=== PATIENT | male | born 1995 | race Caucasian/White ===

== ENCOUNTER → 2017-01-27 | Outpatient (CLI) | payer BC ==
[~2017-01-27] MED LIST: FEXO1TAB49 PO; MISCCAP80 PO; PRLSR20 PO; RANI150T3 PO
--- NOTE | 2017-01-27 07:52 | DIAGNOSTIC IMAGING REPORT ---
ABDOMEN COMPLETE (US) CLINICAL HISTORY: Abdominal pain. COMPARISON STUDY: No previous studies for comparison. FINDINGS: The liver is sonographically normal. There is no biliary ductal dilatation. The common bile duct measures 2 mm in caliber. The gallbladder is normal. No gallstones are identified. The pancreas is within normal limits by sonography although the head and tail are slightly obscured by overlying bowel gas. The size of the spleen is normal. The right kidney measures 11.2 cm and the left measures 11.6 cm. There is no hydronephrosis. No calculi or masses are identified within the kidneys by sonography. The caliber of the abdominal aorta is normal. Visualized portions of the IVC are patent. IMPRESSION: Normal abdominal ultrasound. Electronically signed by: Yang Pelletier M.D. 01/27/2017 7:51 AM Dictated Date/Time: 01/27/2017 7:49 AM
== END | disposition home or self-care (01) ==
LOC: C.ULTR 07:03
PROVIDERS: ATTEND Internal Medicine Gastroenterology
DX: R10.9 Unspecified abdominal pain (principal)

== ENCOUNTER → 2017-03-03 | Day surgery (SDC) | payer BC ==
[2017-02-14 10:34] VITALS: BMI 22.0
[~2017-03-03] VITALS: Ht 172.7 cm; Wt 65.9 kg
[~2017-03-03] MED LIST changes: +ATROPINE SULFATE 0.1 MG/ML 5ML SYR IV PRN; +DEXAMETHASONE SOD INJ 4 MG/ML VIAL ONE; +EpHEDrine SULFATE INJ 50 MG/ML AMP IV PRN; +FENTANYL CITRATE INJ 50 MCG/1 ML 2 ML VIAL IV PRN; +FENTANYL CITRATE INJ 50 MCG/1 ML 2 ML VIAL ONE; +LACTATED RINGER'S 1000ML 1,000 ML IV SCH; +LIDOCAINE HCL 2% 2 ML VIAL (20MG/ML) ONE; +MIDAZOLAM HCL 1 MG/ML 2ML VIAL ONE; +ONDANSETRON INJ 2 MG/ML 2 ML VIAL IV PRN; +ONDANSETRON INJ 2 MG/ML 2 ML VIAL ONE; +PROPOFOL IV EMULSION 10 MG/ML 20 ML VIAL IV ONE; +ROCURONIUM BROMIDE 10 MG/ML 5 ML VIAL IV ONE; +SCOPOLAMINE 1.5 MG TDSY TD ONE; +SODIUM CHLORIDE 0.9% 500ML 500 ML IV ONE; +SUCCINYLCHOLINE CHLORIDE 20 MG/ML 10 ML VIAL IV ONE
[2017-03-03 06:47] VITALS: BP 128/66; PULSE 98; TEMP 36.5; O2SAT 95; Ht 172.7 cm; Wt 65.9 kg
--- NOTE | 2017-03-03 08:08 | Endo History and Physical ---
History & Physical Date of Service: Mar 03, 2017. Chief Complaint: Referring Physician: History of Present Illness antral submucosal lesion Past Surgical History Hx Cardiac Surgery: No Hx Abdominal Surgery: No Hx Post-Op Nausea and Vomiting: No Hx Cancer Surgery: No Hx Thoracic Surgery: No Hx Orthopedic: No Hx Urinary Tract Surgery: No Social History Smoking Status: Never Smoker Hx Substance Use: Yes (OCC MARIJUANA 1 A WEEK) Hx Alcohol Use: Yes (1 A WEEK VODKA OR BEER) Allergies Coded Allergies: No Known Allergies (Verified , 02/14/17) Current Medications Reported Home Medications Medications Dose Route/Sig Max Daily Dose Days Date Category Prilosec (Omeprazole) 20 Mg Capcr 20 Mg PO PRN 02/14/17 Reported Zantac (Ranitidine HCl) 150 Mg Tab 150 Mg PO PRN 02/14/17 Reported Probiotic (Probiotic Product) 1 Cap Cap 1 Tab PO PRN 02/14/17 Reported Kay Allergy (Fexofenadine Hcl) 180 Mg Tab 1 Tab PO PRN 14 02/14/17 Reported Vital Signs Weight (Kilograms): 65.91 Height (Feet): 5 Height (Inches): 8 Date Time Temp Pulse Resp B/P (MAP) Pulse Ox O2 Delivery O2 Flow Rate FiO2 03/03/17 06:47 36.5 98 18 128/66 (86) 95 Room Air Physical Exam AAOx3 Nl s1s2 lungs CTA Anbd soft NT/ND + Bs - CCE - bruits no distention Assessment and Plan EGD/EUS +/- FNA
--- NOTE | 2017-03-03 10:00 | Discharge Instructions ---
Endoscopy Patient Instructions Date / Procedure(s) Performed Mar 03, 2017. Other Allergy Information Coded Allergies: No Known Allergies (Verified , 02/14/17) Discharge Date / Findings Mar 03, 2017. submucosal nodue; FNA performed Medication Instructions Restart Stopped Medication(s): Reported Home Medications Medications Dose Route/Sig Max Daily Dose Days Date Category Prilosec (Omeprazole) 20 Mg Capcr 20 Mg PO PRN 02/14/17 Reported Zantac (Ranitidine HCl) 150 Mg Tab 150 Mg PO PRN 02/14/17 Reported Probiotic (Probiotic Product) 1 Cap Cap 1 Tab PO PRN 02/14/17 Reported Kay Allergy (Fexofenadine Hcl) 180 Mg Tab 1 Tab PO PRN 14 02/14/17 Reported Reported Home Medications Medications Dose Route/Sig Max Daily Dose Days Date Category Prilosec (Omeprazole) 20 Mg Capcr 20 Mg PO PRN 02/14/17 Reported Zantac (Ranitidine HCl) 150 Mg Tab 150 Mg PO PRN 02/14/17 Reported Probiotic (Probiotic Product) 1 Cap Cap 1 Tab PO PRN 02/14/17 Reported Kay Allergy (Fexofenadine Hcl) 180 Mg Tab 1 Tab PO PRN 14 02/14/17 Reported Provider Instructions Activity Restrictions - No exercising or heavy lifting for 24 hours. - Do not drink alcohol the day of the procedure. - Do not drive a car or operate machinery until the day after the procedure. - Do not make any important decisions or sign important papers in 24 hours after the procedure. Following Day: - Return to full activity which may include returning to work/school. Diet Start your diet with liquids and light foods (jello, soup, juice, toast). Then eat your usual diet if not nauseated. Treatment For Common After Affects For mild abdominal pain, bloating, or excessive gas: - Rest - Eat lightly - Lie on right side Follow-Up Information Follow-up with as scheduled Anesthesia Information What You Should Know You have had a procedure that required some medicine to reduce anxiety and discomfort. This treatment is called moderate sedation. After receiving the treatment, you may be sleepy, but you will be able to breathe on your own. The effects of the treatment may last for several hours. Follow these instructions along with Activity/Diet recommendations noted above: * Do NOT do anything where dizziness or clumsiness would be dangerous. * Rest quietly at home today, then you can be up and about tomorrow. * Have a responsible person stay with you the rest of today. * You may have had an I.V. today. If so, you may take the dressing off later today. Recommendations Call your doctor if: * Trouble breathing * Continuous vomiting for more than 24 hours * Temperature above 101 degrees * Severe abdominal pain or bloating * Pain not relieved by pain medicine ordered * There is increased drainage or redness from any incision * A large amount of rectal bleeding greater than 2-3 tablespoons. (If you had a polyp/s removed or have hemorrhoids, a small amount of blood - from the rectum is to be expected.) * You have any unanswered questions or concerns. IN THE EVENT OF A SERIOUS EMERGENCY, GO TO THE NEAREST EMERGENCY ROOM Your discharge instructions were prepared by provider Alex Delgado. Patient Instructions Signature Page [facility] Patient (or Guardian) Signature/Date: I have read and understand the instructions given to me by my caregivers. Caregiver/RN/Doctor Signature/Date: The above-named patient and/or guardian has received patient instructions on this date. + Original Patient Signature Page (only) stays with chart. Please make copy for patient.
--- NOTE | 2017-03-03 10:07 | GI REPORT ---
Procedure Date: 03/03/2017 8:23 AM Procedure: Upper GI endoscopy Indications: Nausea with vomiting Medicines: General Anesthesia Complications: No immediate complications. Estimated blood loss: None. Estimated Blood Loss: Estimated blood loss: none. Procedure: Pre-Anesthesia Assessment: - Prior to the procedure, a History and Physical was performed, and patient medications and allergies were reviewed. The patient's tolerance of previous anesthesia was also reviewed. The risks and benefits of the procedure and the sedation options and risks were discussed with the patient. All questions were answered, and informed consent was obtained. Prior Anticoagulants: The patient has taken no previous anticoagulant or antiplatelet agents. ASA Grade Assessment: I - A normal, healthy patient. After reviewing the risks and benefits, the patient was deemed in satisfactory condition to undergo the procedure. After obtaining informed consent, the endoscope was passed under direct vision. Throughout the procedure, the patient's blood pressure, pulse, and oxygen saturations were monitored continuously. The scope was introduced through the mouth, and advanced to the second part of duodenum. The upper GI endoscopy was accomplished without difficulty. The patient tolerated the procedure well. Findings: The examined esophagus was normal. A single 15 mm submucosal papule (nodule) with no bleeding and no stigmata of recent bleeding was found in the prepyloric region of the stomach. The examined duodenum was normal. The cardia and gastric fundus were normal on retroflexion. Retained gastric contents are not identified on this exam. Impression: - Normal esophagus. - A single submucosal papule (nodule) found in the stomach. - Normal examined duodenum. - No specimens collected. Recommendation: - Discharge patient to home (ambulatory). - Resume regular diet. MD Alex Oleary MD 03/03/2017 10:07:11 AM This report has been signed electronically. Note Initiated On: 03/03/2017 8:23 AM I attest to the content of the Intraoperative Record and orders documented therein, exceptions below
--- NOTE | 2017-03-03 10:20 | GI REPORT ---
Procedure Date: 03/03/2017 8:36 AM Procedure: Upper EUS Indications: Gastric deformity on endoscopy/Subepithelial tumor versus extrinsic compression Medicines: General Anesthesia Complications: No immediate complications. Estimated blood loss: Minimal. Estimated Blood Loss: Estimated blood loss was minimal. Procedure: Pre-Anesthesia Assessment: - Prior to the procedure, a History and Physical was performed, and patient medications and allergies were reviewed. The patient's tolerance of previous anesthesia was also reviewed. The risks and benefits of the procedure and the sedation options and risks were discussed with the patient. All questions were answered, and informed consent was obtained. Prior Anticoagulants: The patient has taken no previous anticoagulant or antiplatelet agents. ASA Grade Assessment: II - A patient with mild systemic disease. After reviewing the risks and benefits, the patient was deemed in satisfactory condition to undergo the procedure. After obtaining informed consent, the endoscope was passed under direct vision. Throughout the procedure, the patient's blood pressure, pulse, and oxygen saturations were monitored continuously. The Endosonoscope was introduced through the mouth, and advanced to the duodenum for ultrasound examination from the esophagus, stomach and duodenum. The Endosonoscope was introduced through the mouth, and advanced to the duodenal bulb. The upper EUS was accomplished without difficulty. The patient tolerated the procedure well. Findings: Endoscopic Finding : The examined esophagus was normal. A single 15 mm submucosal papule (nodule) with no bleeding and no stigmata of recent bleeding was found in the prepyloric region of the stomach. The examined duodenum was normal. Endosonographic Finding : The esophagus, stomach and duodenum were visualized endosonographically. There was no sign of significant endosonographic abnormality in the esophagus. No pathologic lymphadenopathy was identified. A round intramural (subepithelial) lesion was found in the pylorus. The lesion was hyperechoic and heterogenous. Sonographically, the lesion appeared to originate from the muscularis propria (Layer 4). The lesion also appeared to involve the following wall layer(s): muscularis propria (Layer 4). The lesion measured 11 mm (in maximum thickness). The lesion also measured 13 mm in diameter. The outer endosonographic borders were well defined. Fine needle aspiration for cytology was performed. Color Doppler imaging was utilized prior to needle puncture to confirm a lack of significant vascular structures within the needle path. Three passes were made with the 22 gauge needle using a transgastric approach. Some passes were made with a stylet. A sales promotion coordinator was present to evaluate the adequacy of the specimen. The cellularity of the specimen was adequate. Final cytology results are pending. Fine needle biopsy was performed. Color Doppler imaging was utilized prior to needle puncture to confirm a lack of significant vascular structures within the needle path. One pass was made with the 21 gauge ultrasound core biopsy needle using a transgastric approach. A visible core of tissue was obtained. A preliminary cytologic examination was performed. The cellularity of the specimen was adequate. Final cytology results are pending. There was no sign of significant endosonographic abnormality in the duodenal bulb. No pathologic lymphadenopathy was identified. There was no sign of significant endosonographic abnormality in the gallbladder. An unremarkable gallbladder was identified. There was no sign of significant endosonographic abnormality in the pancreatic head, in the pancreatic body, in the pancreatic tail and in the main pancreatic duct. The pancreas was well visualized, no pathologic lymphadenopathy, no masses, no cysts, no calcifications, the pancreatic duct was regular in contour. No lymphadenopathy seen. Impression: - Normal esophagus. - A single submucosal papule (nodule) found in the stomach. - Normal examined duodenum. - There was no sign of significant pathology in the esophagus. - An intramural (subepithelial) lesion was found in the pylorus. The lesion appeared to originate from within the muscularis propria (Layer 4). Fine needle aspiration performed. Fine needle biopsy performed. - There was no sign of significant pathology in the duodenal bulb. - There was no sign of significant pathology in the gallbladder. - There was no sign of significant pathology in the pancreatic head, in the pancreatic body, in the pancreatic tail and in the main pancreatic duct. Recommendation: - Discharge patient to home (ambulatory). - Patient has a contact number available for emergencies. The signs and symptoms of potential delayed complications were discussed with the patient. Return to normal activities tomorrow. Written discharge instructions were provided to the patient. - Advance diet as tolerated. - Avoid alcohol - Continue present medications. - Await cytology results and await path results. - Return to referring physician as previously scheduled. - there are no retained gastric contents or evidence for obstruction. Endoscopes easily pass across pylorus. MD Alex Oleary MD 03/03/2017 10:20:13 AM This report has been signed electronically. Note Initiated On: 03/03/2017 8:36 AM I attest to the content of the Intraoperative Record and orders documented therein, exceptions below
[2017-03-03 10:45] VITALS: BP 117/66; PULSE 70; TEMP 36.7; O2SAT 98
[2017-03-03 11:15] VITALS: BP 112/62; PULSE 65; O2SAT 99
[2017-03-03 11:45] VITALS: BP 101/67; PULSE 72; TEMP 36.6; O2SAT 97
--- NOTE | 2017-03-03 12:16 | Anesthesiology Progress Note ---
Anesthesia Post Op Note Date & Time Mar 03, 2017 at 12:16 Vital Signs Pain Intensity: 2 Vital Signs Past 12 Hours Date Time Temp Pulse Resp B/P (MAP) Pulse Ox O2 Delivery O2 Flow Rate FiO2 03/03/17 11:45 36.6 72 18 101/67 97 Room Air 03/03/17 11:15 65 18 112/62 99 Room Air 03/03/17 10:45 36.7 70 18 117/66 98 Room Air 03/03/17 10:40 36.5 64 16 109/71 99 Room Air 03/03/17 10:30 65 16 114/66 97 Oxymask 03/03/17 10:20 78 16 115/60 100 Oxymask 10 03/03/17 10:10 70 16 116/63 100 Oxymask 10 03/03/17 10:00 36.4 71 16 112/65 100 Oxymask 10 03/03/17 06:47 36.5 98 18 128/66 (86) 95 Room Air Notes Mental Status: alert / awake / arousable, participated in evaluation Pt Amnestic to Procedure: Yes Nausea / Vomiting: adequately controlled Pain: adequately controlled Airway Patency, RR, SpO2: stable & adequate BP & HR: stable & adequate Hydration State: stable & adequate Anesthetic Complications: no major complications apparent
== END | disposition home or self-care (01) ==
LOC: C.ACU 06:30
PROVIDERS: ATTEND Internal Medicine Gastroenterology
DX: K31.9 Disease of stomach and duodenum, unspecified (principal); R11.2 Nausea with vomiting, unspecified; Z79.899 Other long term (current) drug therapy

== ENCOUNTER → 2017-03-09 | Outpatient (CLI) | payer BC ==
[~2017-03-09] MED LIST changes: -ATROPINE SULFATE 0.1 MG/ML 5ML SYR IV PRN; -DEXAMETHASONE SOD INJ 4 MG/ML VIAL ONE; -EpHEDrine SULFATE INJ 50 MG/ML AMP IV PRN; -FENTANYL CITRATE INJ 50 MCG/1 ML 2 ML VIAL IV PRN; -FENTANYL CITRATE INJ 50 MCG/1 ML 2 ML VIAL ONE; -LACTATED RINGER'S 1000ML 1,000 ML IV SCH; -LIDOCAINE HCL 2% 2 ML VIAL (20MG/ML) ONE; -MIDAZOLAM HCL 1 MG/ML 2ML VIAL ONE; -ONDANSETRON INJ 2 MG/ML 2 ML VIAL IV PRN; -ONDANSETRON INJ 2 MG/ML 2 ML VIAL ONE; +OPTIRAY 320 IV PRN; -PROPOFOL IV EMULSION 10 MG/ML 20 ML VIAL IV ONE; -ROCURONIUM BROMIDE 10 MG/ML 5 ML VIAL IV ONE; -SCOPOLAMINE 1.5 MG TDSY TD ONE; -SODIUM CHLORIDE 0.9% 500ML 500 ML IV ONE; -SUCCINYLCHOLINE CHLORIDE 20 MG/ML 10 ML VIAL IV ONE
--- NOTE | 2017-03-09 13:50 | DIAGNOSTIC IMAGING REPORT ---
CT OF THE ABDOMEN WITH IV AND ORAL CONTRAST CLINICAL HISTORY: Abdominal pain, nausea and vomiting. Pancreatic rests in stomach. COMPARISON STUDY: Abdominal ultrasound January 27, 2017. TECHNIQUE: Axial images of the abdomen were obtained following intravenous injection of 93 cc 5 08/06/2019 IV. Oral contrast was administered. FINDINGS: Lung bases are clear. The liver, spleen, adrenal glands, kidneys and pancreas are normal. There is a small splenule. No biliary or pancreatic ductal dilatation is present. No heterotopic/ectopic pancreatic tissue is identified although ectopic pancreas within the stomach would likely be occult by CT. No abdominal lymphadenopathy or ascites is present. Caliber and wall thickness of visualized small and large bowel are normal. Skeletal structures are unremarkable. IMPRESSION: Normal CT scan of the abdomen. Electronically signed by: Yang Pelletier M.D. 03/09/2017 1:49 PM Dictated Date/Time: 03/09/2017 1:44 PM
== END | disposition home or self-care (01) ==
LOC: C.CTS 12:47
PROVIDERS: ATTEND Internal Medicine Gastroenterology
DX: Q45.3 Other congenital malformations of pancreas and pancreatic duct (principal); R10.9 Unspecified abdominal pain

== ENCOUNTER 2017-03-21 06:10 | Emergency (ER) | payer BC ==
[~2017-03-21] VITALS: Ht 172.7 cm; Wt 64.5 kg
[~2017-03-21 06:10] MED LIST changes: -OPTIRAY 320 IV PRN
[2017-03-21 06:19] VITALS: TEMP 36.6; Ht 172.7 cm; Wt 64.5 kg
[2017-03-21] MEDS ORDERED: KETOROLAC TROMETHAMINE 30 MG/ML VIAL IV STA (06:35)
[2017-03-21] MEDS ORDERED: ONDANSETRON INJ 2 MG/ML 2 ML VIAL IV STA (06:35)
[2017-03-21] MEDS ORDERED: SODIUM CHLORIDE 0.9% 1000ML 1,000 ML IV STA ×2 (06:35)
[2017-03-21 06:43] LABS: BASO % 0.2 %; BASO ABS # 0.02 K/uL (0-0.2); COMPLETE YES; EOS % 1.1 %; IG% 0.2 %; LYMPH % 24.3 %; LYMPH ABS # 2.24 K/uL (1.2-3.4); MEAN CELL VOLUME 87.4 fL (80-100); MEAN CORPUSCULAR HEMOGLOBIN 30.9 pg (25-34); MEAN CORPUSCULAR HGB CONC 35.3 g/dl (32-36); MEAN PLATELET VOLUME 9.2 fL (7.4-10.4); MONO % 12.2 %; PLATELET COUNT 338 K/uL (130-400); RED BLOOD COUNT 4.92 M/uL (4.7-6.1); WHITE BLOOD COUNT 9.23 K/uL (4.8-10.8)
[2017-03-21 07:02] LABS: BUN/CREATININE RATIO 19.5 (10-20); CALCIUM 9.7 mg/dl (8.5-10.1); CREATININE 0.95 mg/dl (0.60-1.40); POTASSIUM 3.4 mmol/L (3.5-5.1)
[2017-03-21 07:05] LABS: ALB/GLOB RATIO 1.3 (0.9-2)
--- NOTE | 2017-03-21 07:09 | EMERGENCY ROOM VISIT NOTE ---
History Report prepared by Mathew: Hailey Henson Under the Supervision of: Dr. Juliocesar Du M.D. First contact with patient: 06:35 Chief Complaint: ABDOMINAL PAIN Stated Complaint: DIARRHEA,VOMITING,PAIN History of Present Illness The patient is a 21 year old male who presents to the Emergency Room with complaints of persistent abdominal pain that began when he woke this morning. He currently rates his discomfort as a 6/10 in severity. The patient states that he has a history of an abdominal mass. The patient's mother states that the patient is supposed to have surgery at [facility] to have the mass removed on April 12. The patient states that he intermittently experiences abdominal pain, diarrhea, and dry heaves. The patient states that yesterday he did not feel the best, and states that he did not have much of an appetite or eat much. He states that he did eat at a [employer] and then was feeling better. The patient states that this morning he woke with diarrhea, dry heaves, and abdominal pain. He states that doctors have felt that his stomach is not draining which makes him feel full all the time. The patient states that doctors thought that his symptoms were more related to alcohol use and spicy foods, but states that he stopped drinking alcohol and eating spicy foods. The patient's mother states that the patient's work up has been normal so far, but notes that the patient's symptoms are getting worse. She states that she is unsure if the patient is going to be able to go on with these symptoms until his surgery. Source of History: patient, parent (mother) Onset: woke this morning Position: abdomen Symptom Intensity: 6/10 Timing: other (persistent) Associated Symptoms: + diarrhea Note: Associated Symptoms: dry heaves Review of Systems See HPI for pertinent positives & negatives. A total of 10 systems reviewed and were otherwise negative. Past Medical & Surgical Medical Problems: (1) Abdominal mass Surgical Problems: (1) [place] teeth removed Family History Hypertension Kidney disease Kidney stones Social History Smoking Status: Never Smoker Smokeless Tobacco Use: No Alcohol Use: occasionally Marital Status: single Housing Status: lives with roommate Occupation Status: employed, [employer] student Current/Historical Medications Scheduled Ondasetron Odt (Zofran Odt), 4 MG SL Q6H Pantoprazole (Protonix), 20 MG PO BID Scheduled PRN Fexofenadine Hcl (Kay Allergy), 180 TAB PO DAILY PRN for allergies Omeprazole (Prilosec), 20 MG PO DAILY PRN for Heartburn Ranitidine Hcl (Zantac), 150 MG PO DAILY PRN for Heartburn Allergies Coded Allergies: No Known Allergies (Verified , 02/14/17) Physical Exam Vital Signs Date Time Temp Pulse Resp B/P (MAP) Pulse Ox O2 Delivery O2 Flow Rate FiO2 03/21/17 08:25 67 18 101/58 96 Room Air 03/21/17 06:19 36.6 82 16 118/82 97 Room Air Physical Exam GENERAL: Patient is in no acute distress. HEENT: No acute trauma, normocephalic atraumatic, mucous membranes moist, no nasal congestion, no scleral icterus. NECK: No stridor, no adenopathy, no meningismus, trachea is midline. LUNGS: Clear to auscultation bilaterally, no wheeze, no rhonchi, breath sounds equal. HEART: Without murmurs gallops or rubs, regular rate and rhythm. ABDOMEN: Soft, nontender, bowel sounds positive and hyperactive, no hernias, no peritonitis. EXTREMITIES: No cyanosis or edema, full range of motion of all the joints without pain or difficulty, no signs for acute trauma. NEUROLOGIC: Oriented x 3, no acute motor or sensory deficits, no focal weakness. SKIN: No rash, no jaundice, no diaphoresis. Medical Decision & Procedures Laboratory Results 03/21/17 06:30 Red Blood Count 4.92, Mean Corpuscular Volume 87.4, Mean Corpuscular Hemoglobin 30.9, Mean Corpuscular Hemoglobin Concent 35.3, Mean Platelet Volume 9.2, Neutrophils (%) (Auto) 62.0, Lymphocytes (%) (Auto) 24.3, Monocytes (%) (Auto) 12.2, Eosinophils (%) (Auto) 1.1, Basophils (%) (Auto) 0.2, Neutrophils # (Auto ) 5.72, Lymphocytes # (Auto) 2.24, Monocytes # (Auto) 1.13, Eosinophils # (Auto ) 0.10, Basophils # (Auto) 0.02 03/21/17 06:30 Test 03/21/17 06:30 03/21/17 07:40 White Blood Count 9.23 K/uL (4.8-10.8) Red Blood Count 4.92 M/uL (4.7-6.1) Hemoglobin 15.2 g/dL (14.0-18.0) Hematocrit 43.0 % (42-52) Mean Corpuscular Volume 87.4 fL (80-100) Mean Corpuscular Hemoglobin 30.9 pg (25-34) Mean Corpuscular Hemoglobin Concent 35.3 g/dl (32-36) Platelet Count 338 K/uL (130-400) Mean Platelet Volume 9.2 fL (7.4-10.4) Neutrophils (%) (Auto) 62.0 % Lymphocytes (%) (Auto) 24.3 % Monocytes (%) (Auto) 12.2 % Eosinophils (%) (Auto) 1.1 % Basophils (%) (Auto) 0.2 % Neutrophils # (Auto) 5.72 K/uL (1.4-6.5) Lymphocytes # (Auto) 2.24 K/uL (1.2-3.4) Monocytes # (Auto) 1.13 K/uL (0.11-0.59) Eosinophils # (Auto) 0.10 K/uL (0-0.5) Basophils # (Auto) 0.02 K/uL (0-0.2) RDW Standard Deviation 39.8 fL (36.4-46.3) RDW Coefficient of Variation 12.4 % (11.5-14.5) Immature Granulocyte % (Auto) 0.2 % Immature Granulocyte # (Auto) 0.02 K/uL (0.00-0.02) Anion Gap 6.0 mmol/L (3-11) Est Creatinine Clear Calc Drug Dose 113.2 ml/min Estimated GFR () 133.0 Estimated GFR (Non- 114.8 BUN/Creatinine Ratio 19.5 (10-20) Calcium Level 9.7 mg/dl (8.5-10.1) Total Bilirubin 0.5 mg/dl (0.2-1) Aspartate Amino Transf (AST/SGOT) 17 U/L (15-37) Alanine Aminotransferase (ALT/SGPT) 38 U/L (12-78) Alkaline Phosphatase 70 U/L (45-117) Total Protein 8.0 gm/dl (6.4-8.2) Albumin 4.5 gm/dl (3.4-5.0) Globulin 3.5 gm/dl (2.5-4.0) Albumin/Globulin Ratio 1.3 (0.9-2) Lipase 142 U/L (73-393) urine dip was negative for infection or blood Laboratory results reviewed by me. Medications Administered Medications (Trade) Dose Ordered Sig/Clemente Route Start Time Stop Time Status Last Admin Dose Admin Ondansetron HCl (Zofran Inj) 4 mg NOW STAT IV 03/21/17 06:35 03/21/17 06:37 DC 03/21/17 06:42 4 MG Sodium Chloride 1,000 ml @ 200 mls/hr Q5H STAT IV 03/21/17 06:35 03/21/17 11:34 03/21/17 06:45 200 MLS/HR Sodium Chloride 1,000 ml @ 999 mls/hr Q1H1M STAT IV 03/21/17 06:35 03/21/17 07:35 DC 03/21/17 06:58 999 MLS/HR Ketorolac Tromethamine (Toradol Inj) 30 mg NOW STAT IV 03/21/17 06:35 03/21/17 06:37 DC 03/21/17 06:44 30 MG Sodium Chloride 500 ml @ 999 mls/hr Q31M STAT IV 03/21/17 08:07 03/21/17 08:37 03/21/17 08:07 999 MLS/HR Pantoprazole Sodium (Protonix Tab) 40 mg NOW STAT PO 03/21/17 08:07 03/21/17 08:08 DC 03/21/17 08:23 40 MG ED Course 0635: Ordered Toradol Inj 30 mg IV, Sodium Chloride 1000 ml @ 999 mls/hr IV, Sodium Chloride 1000 ml @ 200 mls/hr, Zofran Inj 4 mg IV. 0655: The patient was evaluated in room A4B. A complete history and physical exam was performed. 0709: I discussed the patients case with Dr. Delgado, Gastroenterology. He states that he would try to get the patient home and so he can see the patient in their clinic tomorrow. He states that if we cannot get the patient home we should call him back. 0807: ordered Protonix Tab 40 mg PO, Sodium Chloride 500 ml @ 999 mls/hr IV. 0817: I reevaluated the patient and he is resting comfortably. I discussed the exam findings with him and I discussed the treatment plan. He verbalized complete understanding and agreement. He is ready for discharge. Medical Decision The patient is a 21 year old male who presents to the ED with complaints of abdominal pain. Differential diagnoses considered include viral illness, dehydration, electrolyte imbalance, gastritis, musculoskeletal pain, UTI, pancreatitis. There is no leukocytosis or concerning anemia. No significant electrolyte abnormality, kidney failure, hepatitis or pancreatitis. The patient was not febrile or toxic. There was no peritonitis. Bowel sounds were hyperactive. Stool testing was ordered, this is pending. Stool testing includes a culture, C. difficile analysis, parasite analysis. The patient received IV Zofran, IV Toradol and IV saline. He was given oral Protonix. He feels markedly better and would like to be discharged home. I talked with the patient's GI group. The patient will be seen tomorrow in the office. For now, a bland diet was suggested. Emergent surgery is not required. Hospitalization is not required. The patient was encouraged to return if worsening. The cause for today's presentation is unclear but may be food related, this maybe viral of course as well. The patient has a history of similar symptoms. Medication Reconcilliation Current Medication List: was personally reviewed by me Consults Time Called: 705 Consulting Physician: Dr. Delgado, Gastroenterololgy Returned Call: [phone] I discussed the patients case with Dr. Delgado, Gastroenterology. He states that he would try to get the patient home and so he can see the patient in their clinic tomorrow. He states that if we cannot get the patient home we should call him back. Impression Primary Impression: Nausea vomiting and diarrhea Additional Impression: Diffuse abdominal pain Scribe Attestation The scribe's documentation has been prepared under my direction and personally reviewed by me in its entirety. I confirm that the note above accurately reflects all work, treatment, procedures, and medical decision making performed by me. Departure Information Dispostion Home / Self-Care Prescriptions Ondasetron Odt (ZOFRAN ODT) 4 Mg Tab 4 MG SL Q6H for Nausea, #15 TAB Prov: Juliocesar Du M.D. 03/21/17 Pantoprazole (Protonix) 20 Mg Tab 20 MG PO BID for 30 Days, #60 TAB 3 Refills Prov: Juliocesar Du M.D. 03/21/17 Referrals Sandor Guzman M.D. (PCP) Alex Delgado M.D. Forms HOME CARE DOCUMENTATION FORM, IMPORTANT VISIT INFORMATION Patient Instructions My [facility] Additional Instructions switch to protonix 2x per day stop the prilosec bland diet--crackers, soup, toast, gatorade zofran 1 tab as needed every 6 hours for nausea call for appt with GI for tomorrow return if worsening Problem Qualifiers
[2017-03-21] MEDS ORDERED: PANTOprazole SOD 40 MG TAB PO STA (08:07)
[2017-03-21] MEDS ORDERED: SODIUM CHLORIDE 0.9% 500ML 500 ML IV STA (08:07)
[2017-03-21] MEDS ORDERED: PRT/20 PO (08:24)
[2017-03-21] MEDS ORDERED: ONDA4TAB10 SL (08:24)
[2017-03-21 08:25] VITALS: BP 101/58; PULSE 67; O2SAT 96
== END 2017-03-21 08:51 | disposition home or self-care (01) ==
LOC: C.EDB 06:10 → C.EDA 08:51
DX: R10.9 Unspecified abdominal pain (principal); R19.7 Diarrhea, unspecified; R11.2 Nausea with vomiting, unspecified; R19.00 Intra-abdominal and pelvic swelling, mass and lump, unspecified site; Z82.49 Family history of ischemic heart disease and other diseases of the circulatory system; Z84.1 Family history of disorders of kidney and ureter